=== PATIENT | male | born 1995 | race Caucasian/White ===

== ENCOUNTER 2017-01-08 09:59 | Emergency (ER) | payer BC, OTHER ==
[~2017-01-08] VITALS: Ht 180.3 cm; Wt 101.3 kg
[2017-01-08 10:00] VITALS: Ht 180.3 cm; Wt 101.3 kg
[2017-01-08] MEDS ORDERED: AZITTAB PO (10:18)
[2017-01-08] MEDS ORDERED: ACET-1256 PO (10:18)
[2017-01-08] MEDS ORDERED: DEXAMETHASONE SOD INJ 10 MG/ML VIAL IV ONE (10:30)
[2017-01-08 10:43] LABS: BASO % 0.1 %; BASO ABS # 0.01 K/uL (0-0.2); COMPLETE YES; EOS % 1.7 %; HEMATOCRIT 42.9 % (42-52); IG% 0.2 %; LYMPH % 11.2 %; LYMPH ABS # 1.06 K/uL (1.2-3.4); MEAN CELL VOLUME 87.9 fL (80-100); MEAN CORPUSCULAR HEMOGLOBIN 31.8 pg (25-34); MEAN CORPUSCULAR HGB CONC 36.1 g/dl (32-36); MEAN PLATELET VOLUME 10.1 fL (7.4-10.4); MONO % 10.4 %; NEUT % 76.4 %; PLATELET COUNT 224 K/uL (130-400); RED BLOOD COUNT 4.88 M/uL (4.7-6.1); WHITE BLOOD COUNT 9.43 K/uL (4.8-10.8)
[2017-01-08 11:01] LABS: BUN/CREATININE RATIO 10.8 (10-20); CALCIUM 9.5 mg/dl (8.5-10.1); CREATININE 0.96 mg/dl (0.60-1.40); POTASSIUM 3.8 mmol/L (3.5-5.1)
[2017-01-08] MEDS ORDERED: CLINDAMYCIN IV 900 MG in DEXTROSE 5% ADD-VANTAGE 100ML 100 ML IV ONE (11:15)
--- NOTE | 2017-01-08 11:50 | Medical Consult ---
Consultation Date of Consultation: Jan 08, 2017. Attending Physician: Reason for Consultation: Possible UNIT AID History of Present Illness 21 yo male with a several day history of a sore throat. Had strep culture which was positive earlier in the week. Was placed on a Z-pack. Patient states that he was not improving so he came to the ED for further evaluation. Denies recurrent strep throat in his adult life, did get it commonly as a child. Denies any current alleviating or exacerbating factors. Does admit to some odynophagia. Has never had a UNIT AID previously. Received clindamycin and steroids IV while in the ED. Denies trismus currently. Social History Smoking Status: Never Smoker Allergies Coded Allergies: Penicillins (Verified Allergy, Unknown, unk, 01/08/17) Sulfa Antibiotics (Verified Allergy, Unknown, unk, 01/08/17) Current Inpatient Medications Current Inpatient Medications Medications (Trade) Dose Ordered Sig/Chad Route Start Time Stop Time Status Last Admin Dose Admin Clindamycin Phosphate/Dextrose (Cleocin Iv/ Dextrose Add-[place] 100ML) 106 ml @ 106 mls/hr ONE ONCE IV 01/08/17 11:15 01/08/17 12:14 01/08/17 11:25 106 MLS/HR Review of Systems Constitutional: + fever, No chills, No fatigue, No problem reported, No sweats , No weakness, No weight loss Eyes: No diplopia, No discharge, No eye pain, No problem reported, No redness, No worsening of vision ENT: + problem reported (see HPI) Respiratory: No cough, No dyspnea at rest, No dyspnea on exertion, No hemoptysis, No problem reported, No shortness of breath, No sputum, No wheezing Cardiovascular: No PND, No chest pain, No claudication, No edema, No orthopnea , No palpitations, No problem reported Hematologic / Lymphatic: No abnormal bleeding/bruising, No clotting problems, No night sweats, No problem reported, No swollen lymph nodes Allergic / Immunologic: No environmental allergies, No food allergies, No frequent infections, No hives, No pet sensitivities, No poor healing, No problem reported, No prolonged convalescence, No seasonal allergies Physical Exam Date Time Temp Pulse Resp B/P Pulse Ox O2 Delivery O2 Flow Rate FiO2 01/08/17 11:41 95 18 149/89 98 Room Air 01/08/17 10:51 96 18 138/71 99 Room Air 01/08/17 10:04 98 Room Air 01/08/17 10:00 37.8 113 18 151/83 98 Room Air PROCEDURE After obtaining informed consent, attention was directed to the oropharynx. Exam revealed the right tonsil to be 4+. There was palatal edema on the right sided as well. The area was anesthetized with hurricane spray followed by 1% lidocaine with 1:100,000 epinephrine. After allowing time for local to take affect, an 18 gauge needle was then used to aspirate 3mL of purulence from the right peritonsillar space. An incision over the area of fullness was then made with an 11 blade and the peritonsillar space was opened with a curved hemostat to break up any loculations. Patient tolerated the procedure well. General Appearance: WD/WN, no apparent distress Head: normocephalic, atraumatic Eyes: normal inspection, EOMI ENT: + pertinent finding (Left tonsil is 3+, right tonsil 4+. Mild palatal edema on the right. Uvula is midline. No trismus. No tonsillar exudate. ) Neck: supple, no adenopathy Respiratory/Chest: no respiratory distress, no accessory muscle use Cardiovascular: no edema, no JVD Skin: normal color, warm/dry Lymphatic: + cervical node abnormality Laboratory Results Last 24 Hours Test 01/08/17 10:31 White Blood Count 9.43 K/uL Red Blood Count 4.88 M/uL Hemoglobin 15.5 g/dL Hematocrit 42.9 % Mean Corpuscular Volume 87.9 fL Mean Corpuscular Hemoglobin 31.8 pg Mean Corpuscular Hemoglobin Concent 36.1 g/dl Platelet Count 224 K/uL Mean Platelet Volume 10.1 fL Neutrophils (%) (Auto) 76.4 % Lymphocytes (%) (Auto) 11.2 % Monocytes (%) (Auto) 10.4 % Eosinophils (%) (Auto) 1.7 % Basophils (%) (Auto) 0.1 % Neutrophils # (Auto) 7.20 K/uL Lymphocytes # (Auto) 1.06 K/uL Monocytes # (Auto) 0.98 K/uL Eosinophils # (Auto) 0.16 K/uL Basophils # (Auto) 0.01 K/uL RDW Standard Deviation 37.8 fL RDW Coefficient of Variation 11.7 % Immature Granulocyte % (Auto) 0.2 % Immature Granulocyte # (Auto) 0.02 K/uL Sodium Level 136 mmol/L Potassium Level 3.8 mmol/L Chloride Level 100 mmol/L Carbon Dioxide Level 28 mmol/L Anion Gap 8.0 mmol/L Blood Urea Nitrogen 10 mg/dl Creatinine 0.96 mg/dl Est Creatinine Clear Calc Drug Dose 148.7 ml/min Estimated GFR () 131.4 Estimated GFR (Non- 113.3 BUN/Creatinine Ratio 10.8 Random Glucose 88 mg/dl Calcium Level 9.5 mg/dl Assessment & Plan 21 yo male with right peritonsillar abscess, recent strep + culture - incision and drainage as above - would recommend discharging patient on clindamycin for 2 weeks - recommend discharging patient on prednisone taper - recommend pro-biotic while on clindamycin - will have my office arrange follow up in 7 days for recheck
[2017-01-08 12:24] VITALS: TEMP 37.3
[2017-01-08] MEDS ORDERED: MoRPHine SULFATE 10 MG/ML CARP/VIAL IV STA (12:45)
[2017-01-08] MEDS ORDERED: ONDANSETRON INJ 2 MG/ML 2 ML VIAL IV STA (12:45)
[2017-01-08] MEDS ORDERED: METH4PAK PO (12:53)
[2017-01-08] MEDS ORDERED: CLIN300C2 PO (12:53)
--- NOTE | 2017-01-08 12:55 | EMERGENCY ROOM VISIT NOTE ---
History First contact with patient: 10:04 Chief Complaint: SORETHROAT Stated Complaint: SORE THROAT/SWOLLEN TONSILS History of Present Illness The patient is a 21 year old male who presents to the Emergency Room with complaints of sore throat which started on Tuesday. The patient was seen by his PCP prior to that for a sinus infection and was on doxycycline. He then started with a sore throat on Tuesday and went back to see his PCP. He was positive for strep and placed on Z-Perfecto and 3 days of prednisone 20 mg. The patient states that his throat is getting worse and not better. He is able to swallow liquids but it is painful. The patient denies any fever. He does have chronic sinusitis. The patient is currently not on any steroids. Review of Systems 10 system review was performed and was negative unless stated otherwise history of present illness. Past Medical/Surgical History Chronic sinusitis, allergic rhinitis Social History Smoking Status: Never Smoker Alcohol Use: occasionally Marital Status: single Housing Status: lives with roommate Occupation Status: [employer] student Current/Historical Medications Scheduled Azithromycin (Zithromax Z-Perfecto), 1 PKT PO UD Scheduled PRN Acetaminophen (Tylenol), 500 MG PO UD PRN for Pain or Fever Allergies Coded Allergies: Penicillins (Verified Allergy, Unknown, unk, 01/08/17) Sulfa Antibiotics (Verified Allergy, Unknown, unk, 01/08/17) Physical Exam Vital Signs Date Time Temp Pulse Resp B/P Pulse Ox O2 Delivery O2 Flow Rate FiO2 01/08/17 12:24 37.3 98 18 107/64 99 01/08/17 11:41 95 18 149/89 98 Room Air 01/08/17 10:51 96 18 138/71 99 Room Air 01/08/17 10:04 98 Room Air 01/08/17 10:00 37.8 113 18 151/83 98 Room Air Physical Exam PHYSICAL EXAM: Vital Signs were reviewed: Reviewed Nurse's notes and agree. Oxygen saturation is 98 % on room air which is normal . GENERAL: 21-year-old male appears in no acute distress. MENTAL STATUS: Alert, oriented, coherent. EARS: Canals clear. TMs good light reflex, no erythema or fluid level noted. NOSE: Nasal mucosa with moderate erythema engorgement. PHARYNX: Right tonsil 4+ .No exudate noted. Airway is adequate. Uvula with deviation. The patient is able to open his mouth but it is painful. NECK: Supple, right anterior cervical lymphadenopathy is noted which is tender to palpation. LUNGS: Clear to auscultation without wheezes rales or rhonchi. CARDIAC: Regular rate and rhythm without murmur. SKIN: No rashes noted. Medical Decision & Procedures Laboratory Results 01/08/17 10:31 Red Blood Count 4.88, Mean Corpuscular Volume 87.9, Mean Corpuscular Hemoglobin 31.8, Mean Corpuscular Hemoglobin Concent 36.1, Mean Platelet Volume 10.1, Neutrophils (%) (Auto) 76.4, Lymphocytes (%) (Auto) 11.2, Monocytes (%) (Auto) 10.4, Eosinophils (%) (Auto) 1.7, Basophils (%) (Auto) 0.1, Neutrophils # (Auto ) 7.20, Lymphocytes # (Auto) 1.06, Monocytes # (Auto) 0.98, Eosinophils # (Auto ) 0.16, Basophils # (Auto) 0.01 01/08/17 10:31 Test 01/08/17 10:31 White Blood Count 9.43 K/uL (4.8-10.8) Red Blood Count 4.88 M/uL (4.7-6.1) Hemoglobin 15.5 g/dL (14.0-18.0) Hematocrit 42.9 % (42-52) Mean Corpuscular Volume 87.9 fL (80-100) Mean Corpuscular Hemoglobin 31.8 pg (25-34) Mean Corpuscular Hemoglobin Concent 36.1 g/dl (32-36) Platelet Count 224 K/uL (130-400) Mean Platelet Volume 10.1 fL (7.4-10.4) Neutrophils (%) (Auto) 76.4 % Lymphocytes (%) (Auto) 11.2 % Monocytes (%) (Auto) 10.4 % Eosinophils (%) (Auto) 1.7 % Basophils (%) (Auto) 0.1 % Neutrophils # (Auto) 7.20 K/uL (1.4-6.5) Lymphocytes # (Auto) 1.06 K/uL (1.2-3.4) Monocytes # (Auto) 0.98 K/uL (0.11-0.59) Eosinophils # (Auto) 0.16 K/uL (0-0.5) Basophils # (Auto) 0.01 K/uL (0-0.2) RDW Standard Deviation 37.8 fL (36.4-46.3) RDW Coefficient of Variation 11.7 % (11.5-14.5) Immature Granulocyte % (Auto) 0.2 % Immature Granulocyte # (Auto) 0.02 K/uL (0.00-0.02) Anion Gap 8.0 mmol/L (3-11) Est Creatinine Clear Calc Drug Dose 148.7 ml/min Estimated GFR () 131.4 Estimated GFR (Non- 113.3 BUN/Creatinine Ratio 10.8 (10-20) Calcium Level 9.5 mg/dl (8.5-10.1) Medications Administered Medications (Trade) Dose Ordered Sig/Chad Route Start Time Stop Time Status Last Admin Dose Admin Dexamethasone Sodium Phosphate 10 mg 10 mg NOW ONCE IV 01/08/17 10:30 01/08/17 10:31 DC 01/08/17 10:35 10 MG Clindamycin Phosphate/Dextrose (Cleocin Iv/ Dextrose Add-[place] 100ML) 106 ml @ 106 mls/hr ONE ONCE IV 01/08/17 11:15 01/08/17 12:14 DC 01/08/17 11:25 106 MLS/HR ED Course The patient was evaluated. IV access was obtained. The patient was given Decadron 10 mg IV and clindamycin 900 mg IV. CBC and differential and renal profile was ordered. These were reviewed and were unremarkable. Dr. Rice was consulted for I&D of the abscess. Please see his note. The patient was reevaluated and was still in pain and therefore was given morphine 6 mg IV and Zofran 4 mg IV push. The patient was discharged home in stable condition. Medical Decision Differential diagnosis include strep pharyngitis, severe pharyngitis, or a tonsillar abscess Impression Primary Impression: Peritonsillar abscess Departure Information Dispostion Home / Self-Care Condition GOOD Prescriptions Methylprednisolone (MEDROL DOSEPAK) 4 Mg Perfecto 0 PO DAILY, #1 PKT Prov: Leticia Sharpe PA-C 01/08/17 Clindamycin Hcl (CLEOCIN) 300 Mg Cap 300 MG PO QID for 14 Days, #56 CAP Prov: Leticia Sharpe PA-C 01/08/17 Referrals Geraldine Kidd M.D. (PCP) Forms HOME CARE DOCUMENTATION FORM, IMPORTANT VISIT INFORMATION Patient Instructions ED Abscess Peritonsillar, My [facility] Additional Instructions Follow any instructions given by . Take clindamycin as prescribed. Take a probiotic while taking the clindamycin. Ibuprofen 600 mg every 6 hours with food for pain. Take Medrol dosepak as prescribed. Follow-up with Dr Rice in 7 days as directed.
[2017-01-08 12:58] VITALS: BP 108/84; PULSE 85; O2SAT 98
[2017-01-09] MEDS ORDERED: CLINDAMYCIN 900 MG/106 ML D5W IV ONE (06:00)
== END 2017-01-08 13:02 | disposition home or self-care (01) ==
LOC: C.EDB 10:01 → C.EDA 13:02
DX: J36 Peritonsillar abscess (principal)